=== PATIENT | male | born 1960 | race African-American/Black ===

== ENCOUNTER 2016-05-19 05:34 | Emergency (ER) | payer OTHER ==
[2016-05-19] MEDS ORDERED: NS 0.9% 1000 ML* 1,000 ML IV ONE (07:01)
[2016-05-19] MEDS ORDERED: Ondansetron ODT TAB* 4 MG PO ONE (07:01)
[2016-05-19] MEDS ORDERED: Ketorolac INJ* 30 MG/ML 1 ML VIAL IV ONE (07:01)
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
[2016-05-19 07:31] LABS: Hematocrit 41 % (42-52); Hemoglobin 13.4 g/dl (14.0-18.0); Mean Corpuscular HGB Conc 33 g/dl (31-36); Mean Corpuscular Hemoglobin 27 pg (27-31); Mean Corpuscular Volume 81 fL (80-94); Mean Platelet Volume 10 um3 (7.4-10.4); Red Blood Count 5.03 10^6/ul (4.0-5.4); Red Cell Distribution Width 13 % (10.5-15); White Blood Count 9.3 10^3/ul (3.5-10.8)
[2016-05-19 07:42] LABS: Albumin 3.8 g/dL (3.2-5.2); BUN/Creatinine Ratio 20.8 (8-20); C Reactive Protein 1.48 mg/L (< 5.00); Calcium 9.2 mg/dL (8.6-10.3); EGFR African American 134.4 (>60); EGFR Non-African American 104.5 (>60); Globulin 2.7 g/dL (2-4); Total Bilirubin 0.3 mg/dL (0.2-1.0); Total Protein 6.5 g/dL (6.4-8.9)
[2016-05-19 07:59] LABS: Urine Bilirubin Negative (Negative); Urine Glucose 1+(50 mg/dL) (Negative); Urine Nitrite Negative (Negative)
[2016-05-19 09:11] VITALS: BP 154/97
== END 2016-05-19 09:10 | disposition home or self-care (01) ==
LOC: ED 05:34
DX: M54.9 Dorsalgia, unspecified (principal); E11.9 Type 2 diabetes mellitus without complications; E78.00 Pure hypercholesterolemia, unspecified; I10 Essential (primary) hypertension; J44.9 Chronic obstructive pulmonary disease, unspecified; J45.909 Unspecified asthma, uncomplicated; Z87.891 Personal history of nicotine dependence
CPT/HCPCS: 36415; 80053; 81003; 85025; 86140; A9270-GY; J1885

== ENCOUNTER 2016-05-24 13:02 | Emergency (ER) | payer SELFPAY ==
[2016-05-24 13:21] VITALS: BP 122/82
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
== END 2016-05-24 14:38 | disposition home or self-care (01) ==
LOC: ED 13:02
DX: T65.811A Toxic effect of latex, accidental (unintentional), initial encounter (principal); R42 Dizziness and giddiness; Z91.040 Latex allergy status; Z91.09 Other allergy status, other than to drugs and biological substances; Z87.891 Personal history of nicotine dependence; M54.9 Dorsalgia, unspecified; Y92.9 Unspecified place or not applicable; G89.29 Other chronic pain
CPT/HCPCS: 99281

== ENCOUNTER 2016-06-08 15:33 | Emergency (ER) | payer SELFPAY ==
[2016-06-08 15:55] VITALS: BP 143/95
== END 2016-06-08 16:52 | disposition left against medical advice (07) ==
LOC: ED 15:33
DX: M54.9 Dorsalgia, unspecified (principal); Z53.21 Procedure and treatment not carried out due to patient leaving prior to being seen by health care provider

== ENCOUNTER → 2016-11-18 14:38 | Emergency (ER) | payer MEDICARE, OTHER ==
[~2016-11-18 14:38] MED LIST: Famotidine TAB* 20 MG PO ONE
[2016-11-18 14:44] VITALS: BP 152/121
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
== END | disposition home or self-care (01) ==
LOC: ED 14:38
DX: T78.40XA Allergy, unspecified, initial encounter (principal); T63.441A Toxic effect of venom of bees, accidental (unintentional), initial encounter; W57.XXXA Bitten or stung by nonvenomous insect and other nonvenomous arthropods, initial encounter; Y92.89 Other specified places as the place of occurrence of the external cause; R60.9 Edema, unspecified
CPT/HCPCS: 99282; A9270-GY

== ENCOUNTER 2017-01-30 09:04 | Emergency (ER) | payer MEDICARE ==
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
[2017-01-30] MEDS ORDERED: predniSONE TAB* 20 MG PO ONE (10:18)
[2017-01-30 10:33] VITALS: BP 116/82
== END 2017-01-30 10:32 | disposition home or self-care (01) ==
LOC: ED 09:04
DX: S62.001A Unspecified fracture of navicular [scaphoid] bone of right wrist, initial encounter for closed fracture (principal); S52.121A Displaced fracture of head of right radius, initial encounter for closed fracture; W19.XXXA Unspecified fall, initial encounter; Y93.51 Activity, roller skating (inline) and skateboarding; Y92.9 Unspecified place or not applicable
CPT/HCPCS: 99282; J7512

== ENCOUNTER 2017-03-31 16:00 | Emergency (ER) | payer MEDICARE ==
[2017-03-31 16:11] VITALS: BP 132/87
[2017-03-31] MEDS ORDERED: Tetracaine 0.5% OPTH.SOL 4 ML* 1 DROP BTL RIGHT EYE ONE (18:04)
[2017-03-31] MEDS ORDERED: Fluorescein Sodium TOPICAL* 1 MG TEST OPHTHALMIC ONE (18:04)
[2017-03-31] MEDS ORDERED: Polymyx/Trimethoprim OPTH* 10 ML BTL RIGHT EYE ONE (18:28)
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
== END 2017-03-31 18:45 | disposition home or self-care (01) ==
LOC: ED 16:00
DX: T15.01XA Foreign body in cornea, right eye, initial encounter (principal); Z87.891 Personal history of nicotine dependence; X58.XXXA Exposure to other specified factors, initial encounter; Y92.9 Unspecified place or not applicable
CPT/HCPCS: 99282; A9270-GY

== ENCOUNTER 2017-07-03 13:33 | Emergency (ER) | payer MEDICARE, MEDICAID ==
[2017-07-03 14:16] VITALS: BP 110/70
[2017-07-03] MEDS ORDERED: Fluorescein Sodium TOPICAL* 1 MG TEST OPHTHALMIC ONE (15:34)
[2017-07-03] MEDS ORDERED: Tetracaine 0.5% OPTH.SOL 4 ML* 1 DROP BTL LEFT EYE ONE (15:35)
--- NOTE | 2017-07-03 15:41 | UC ---
Eye Complaint HPI - HPI Summary HPI Summary: 57 year old male with cc of left eye pain. 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 He reports continuous FB sensation with no change in vision. No other complaints. Of note, last tetanus was one year ago. - History of Current Complaint Chief Complaint: UCEye Stated Complaint: FB IN EYE Time Seen by Provider: 07/03/17 15:20 Onset/Duration: Sudden Onset Timing: Constant Severity Initially: Mild Pain Intensity: 4 Location of Injury: Globe Character: Sharp Aggravating Factor(s): Blinking Alleviating Factor(s): Nothing - Risk Factors Penetrating Injury Risk Factor: Negative Globe Rupture Risk Factors: Negative Acute Glaucoma Risk Factors: Negative - Allergies/Home Medications Allergies/Adverse Reactions: Allergies Allergy/AdvReac Type Severity Reaction Status Date / Time Adhesive Tape Allergy Mild Rash Verified 03/31/17 16:08 latex Allergy Rash Verified 07/03/17 14:09 Home Medications: Home Medications Albuterol/Ipratropium NEB.HOMERO* [Duoneb (Albuterol 2.5 MG/Ipratropium 0.5 MG)] 1 vial INH QID PRN 07/03/17 [History Confirmed 07/03/17] Amoxicillin/Clavulanate TAB* [Augmentin TAB 875*] 875 mg PO BID 07/03/17 [ History Confirmed 07/03/17] Fluticasone NASAL SPRAY 50MCG* [Flonase NASAL SPRAY 50MCG*] 1 spray NASAL BID [History Confirmed 07/03/17] Valsartan TAB* [Diovan TAB*] 160 mg PO DAILY 07/03/17 [History Confirmed ] guaiFENesin/CODIEN 100MG-10MG* [Robitussin AC 100Mg-10Mg*] 10 ml PO Q4HR PRN [History Confirmed 07/03/17] metFORMIN* [Glucophage 1000 MG TAB *] 1,000 mg PO BID 07/03/17 [History Confirmed 07/03/17] PMH/Surg Hx/FS Hx/Imm Hx Endocrine History: Diabetes, Dyslipidemia Cardiovascular History: Hypertension Other History Of: Negative For: Anticoagulant Therapy - Surgical History Surgical History: Yes Surgery Procedure, Year, and Place: C/3-C/4 FUSION 04/16/12, ANKLE TENDON, CATARACTS - Family History Known Family History: Positive: Cardiac Disease, Hypertension Family History: no fhx of malignant hyperthermia or anesthesia reaction - Social History Alcohol Use: None Alcohol Amount: 2-3 DRINKS/MONTH +ETOH tonight Substance Use Type: None Substance Use Comment - Amount & Last Used: pt has been going AA meeting,not using presently Smoking Status (MU): Former Smoker Amount Used/How Often: 1/2PPD STARTED AGE 19, KEPT QUITTING Have You Smoked in the Last Year: No When Did the Patient Quit Smoking/Using Tobacco: stopped 10 or more years ago Review of Systems Constitutional: Negative Skin: Negative Eyes: Other - FB sensation ENT: Negative Respiratory: Negative Cardiovascular: Negative Gastrointestinal: Negative Genitourinary: Negative Motor: Negative Neurovascular: Negative Musculoskeletal: Negative Neurological: Negative Psychological: Negative All Other Systems Reviewed And Are Negative: Yes Physical Exam Triage Information Reviewed: Yes Appearance: Well-Appearing, No Pain Distress Vital Signs: Initial Vital Signs Temp 36.9 C 07/03/17 14:10 Pulse 84 07/03/17 14:10 Resp 16 07/03/17 14:10 BP 110/70 07/03/17 14:10 Pulse Ox 100 07/03/17 14:10 Eyes: Positive: Conjunctiva Clear, Other: - Everted eye exam No FB surgical left eye EOMI, ROMAN ENT: Positive: Normal ENT inspection Neck exam: Normal Respiratory Exam: Normal Cardiovascular Exam: Normal Neurological Exam: Normal Psychological Exam: Normal Skin Exam: Normal Procedures - Eye Procedure Eye Irrigated w/ Saline (ccs): 1 Re-Evaluation - Re-Evaluation First Eval Change: Improved Comment: After irrigation, patient felt better and he stated that the FB sensation is gone. Dawson lamp exam with fluorescein shows no corneal abrasion. Reassures patient Eye Complaint Course/Dx - Differential Dx/Diagnosis Differential Diagnosis/HQI/PQRI: Conjunctivitis, Foreign Body, Keratitis Provider Diagnoses: FB in left eye Discharge - Discharge Plan Condition: Good Disposition: HOME Patient Education Materials: Eye Foreign Body (ED) Forms: *Work Release Referrals: Brandi Rosenthal MD [Primary Care Provider] -
[2017-07-03] MEDS ORDERED: Fluorescein Sod TOPICAL 0.6* 0.6 MG TEST OPHTHALMIC ONE (15:48)
== END 2017-07-03 16:30 | disposition home or self-care (01) ==
LOC: UCEAST 13:33
DX: T15.92XA Foreign body on external eye, part unspecified, left eye, initial encounter (principal); Z91.040 Latex allergy status; Z91.048 Other nonmedicinal substance allergy status; E11.9 Type 2 diabetes mellitus without complications; Z79.84 Long term (current) use of oral hypoglycemic drugs; I10 Essential (primary) hypertension; Z87.891 Personal history of nicotine dependence
CPT/HCPCS: 99212; A9270-GY; G0463

== ENCOUNTER 2017-10-10 13:07 | Emergency (ER) | payer MEDICAID, MEDICARE ==
[2017-10-10] MEDS ORDERED: Albuterol/Ipratropium NEB.SOL* Albuterol 2.5 MG/Ipratropium 0.5 MG 3 ML INH ONE (14:09)
--- NOTE | 2017-10-10 14:21 | UC ---
Shortness of Breath HPI - HPI Summary HPI Summary: three days ago patient hit a patch of dirt while mowing and he inhaled the dust- --resulting in cough wheeze and SOB - History of Current Complaint Hx Obtained From: Patient Onset/Duration: Sudden Onset, Lasting Days - 3, Still Present Timing: Constant Dyspnea At: Exertion Associated Signs & Symptoms: Positive: Wheezing, Chest Pain w/Cough <Anjali Cordon - Last Filed: 10/10/17 15:28> <Isabella Navarro - Last Filed: 10/11/17 08:19> - History of Current Complaint Chief Complaint: UCRespiratory Stated Complaint: COUGH SINUS ISSUE Time Seen by Provider: 10/10/17 13:58 - Allergy/Home Medications Allergies/Adverse Reactions: Allergies Allergy/AdvReac Type Severity Reaction Status Date / Time Adhesive Tape Allergy Mild Rash Verified 10/10/17 13:30 latex Allergy Rash Verified 10/10/17 13:30 PMH/Surg Hx/FS Hx/Imm Hx Previously Healthy: No Endocrine History: Diabetes, Dyslipidemia Cardiovascular History: Hypertension Respiratory History: Asthma Psychological History: Other Other Psychological History: insomnia Other History Of: Negative For: Anticoagulant Therapy - Surgical History Surgical History: Yes Surgery Procedure, Year, and Place: C/3-C/4 FUSION 04/16/12, ANKLE TENDON, CATARACTS - Family History Known Family History: Positive: Cardiac Disease, Hypertension Family History: no fhx of malignant hyperthermia or anesthesia reaction - Social History Occupation: Disabled Lives: With Family Alcohol Use: None Alcohol Amount: 2-3 drinks per night Substance Use Type: None Substance Use Comment - Amount & Last Used: pt has been going AA meeting,not using presently Smoking Status (MU): Former Smoker Amount Used/How Often: 1/2PPD STARTED AGE 19, KEPT QUITTING Have You Smoked in the Last Year: No When Did the Patient Quit Smoking/Using Tobacco: stopped 10 or more years ago <Anjali Cordon - Last Filed: 10/10/17 15:28> Review of Systems Constitutional: Negative Skin: Negative Eyes: Negative ENT: Sinus Congestion, Sinus Pain/Tenderness Respiratory: Shortness Of Breath, Cough Cardiovascular: Negative Gastrointestinal: Negative Genitourinary: Negative Motor: Negative Neurovascular: Negative Musculoskeletal: Negative Neurological: Negative Psychological: Negative Is Patient Immunocompromised?: No All Other Systems Reviewed And Are Negative: Yes <Anjali Cordon - Last Filed: 10/10/17 15:28> Physical Exam Triage Information Reviewed: Yes Appearance: Well-Appearing, No Pain Distress, Well-Nourished Vital Signs: Initial Vital Signs Temp 98.7 F 10/10/17 13:10 Pulse 97 10/10/17 13:10 Resp 16 10/10/17 13:10 BP 142/88 10/10/17 13:10 Pulse Ox 100 10/10/17 13:10 Vital Signs Reviewed: Yes Eye Exam: Normal Eyes: Positive: Conjunctiva Clear ENT Exam: Normal ENT: Positive: Normal ENT inspection, Hearing grossly normal, Pharynx normal, TMs normal, Sinus tenderness, Uvula midline. Negative: Nasal congestion, Trismus, Muffled voice, Hoarse voice, Dental tenderness Dental Exam: Normal Neck exam: Normal Neck: Positive: Supple, Nontender Respiratory Exam: Normal Respiratory: Positive: Chest non-tender, No respiratory distress, No accessory muscle use, Wheezing Cardiovascular Exam: Normal Cardiovascular: Positive: RRR, No Murmur, Pulses Normal, Brisk Capillary Refill Musculoskeletal Exam: Normal Musculoskeletal: Positive: Strength Intact, ROM Intact, No Edema Neurological Exam: Normal Neurological: Positive: Alert, Muscle Tone Normal Psychological Exam: Normal Skin Exam: Normal <Anjali Cordon - Last Filed: 10/10/17 15:28> Vital Signs: Initial Vital Signs Temp 98.7 F 10/10/17 13:10 Pulse 97 10/10/17 13:10 Resp 16 10/10/17 13:10 BP 142/88 10/10/17 13:10 Pulse Ox 100 10/10/17 13:10 <Isabella Navarro - Last Filed: 10/11/17 08:19> Re-Evaluation - Re-Evaluation First Eval Change: Improved - increased air movement-feeling better <Anjali Cordon - Last Filed: 10/10/17 15:28> Shortness of Breath Dx - Course Course Of Treatment: Continue albuterol and duonebs, short course of Prednisone (check blood sugars 4 times a day and follow with pcp), flonase augmentin, follow BP with pcp - Differential Dx/Diagnosis Provider Diagnoses: Acute exacebation of bronchospams, sinusitis, hypertension in poor control <Anjali Cordon - Last Filed: 10/10/17 15:28> Discharge - Sign-Out/Discharge Documenting (check all that apply): Discharge/Admit/Transfer - Billing Disposition and Condition Condition: STABLE Disposition: Home <Anjali Cordon - Last Filed: 10/10/17 15:28> - Billing Disposition and Condition Condition: STABLE Disposition: Home <Isabella Navarro - Last Filed: 10/11/17 08:19> - Discharge Plan Condition: Stable Disposition: HOME Prescriptions: Amoxicillin/Clavulanate TAB* [Augmentin TAB 875*] 875 mg PO BID #20 tab Fluticasone NASAL SPRAY 50MCG* [Flonase NASAL SPRAY 50MCG*] 2 spray BOTH NARES DAILY #1 btl predniSONE [Prednisone 20 MG TAB] 20 mg PO DAILY 6 Days #9 tablet Patient Education Materials: Fluticasone (Into the nose), Hypertension (ED), Bronchospasm (ED) Referrals: Brandi Rosenthal MD [Primary Care Provider] - 2 Days Additional Instructions: Check your blood sugar before meals and at bed---notify your primary care doctor if they elevate!!! Attestation Statement User Type: Provider - I was available for consult. This patient was seen by the [facility]. The patient was not presented to, seen by, or examined by me. -Addi <Isabella Navarro - Last Filed: 10/11/17 08:19>
[2017-10-10 15:24] VITALS: BP 141/95
== END 2017-10-10 15:25 | disposition home or self-care (01) ==
LOC: UCEAST 13:07
DX: J98.01 Acute bronchospasm (principal); J32.9 Chronic sinusitis, unspecified; E11.9 Type 2 diabetes mellitus without complications; I10 Essential (primary) hypertension; Z91.040 Latex allergy status; Z91.09 Other allergy status, other than to drugs and biological substances; Z87.891 Personal history of nicotine dependence
CPT/HCPCS: 99212; A9270-GY; G0463

== ENCOUNTER 2018-01-26 18:49 | Emergency (ER) | payer MEDICARE ==
[2018-01-26] MEDS ORDERED: Ketorolac INJ* 30 MG/ML 1 ML VIAL IM ONE (20:53)
[2018-01-26] MEDS ORDERED: oxyCODONE/Acetamin 5/325 MG* TAB PO ONE (20:54)
[2018-01-26] MEDS ORDERED: Lidocaine PATCH 5%* 1 PATCH TRANSDERM ONE (20:54)
--- NOTE | 2018-01-26 21:29 | RAD ---
EXAM: CT Cervical Spine Without Intravenous Contrast CLINICAL HISTORY: 57 years old, male; Pain; Neck pain; Prior surgery; Surgery date: 6+ months; Surgery type: Plates/screws multiple levels cervical spine; Additional info: Left side neck pain TECHNIQUE: Axial computed tomography images of the cervical spine without intravenous contrast. All CT scans at this facility use at least one of these dose optimization techniques: automated exposure control; mA and/or kV adjustment per patient size (includes targeted exams where dose is matched to clinical indication); or iterative reconstruction. Coronal and sagittal reformatted images were created and reviewed. COMPARISON: [facility] SPINE CERVICAL W/O 02/25/2016 2:24 PM FINDINGS: Vertebrae: Straightened cervical lordosis without spondylolisthesis. Patient post anterior fusion and discectomy is C3-C4 and C6-C7 with findings from prior anterior fusion of C4-C5. The craniocervical junction and atlantoaxial articulation are symmetric and normal. No fractures. Vertebral body heights are maintained. Discs/spinal canal/neural foramina: C2-C3:There is no disc space narrowing. No canal stenosis or foraminal narrowing. Mild right facet hypertrophy. C3-C4: Fusion of the disc space. The facet joints are normal. No neural foraminal narrowing. C4-C5:There is no disc space narrowing. No canal stenosis or foraminal narrowing. The facet joints are normal. C5-C6: Disc height loss with osteophyte disc bulge complex causing mild to moderate canal stenosis unchanged from prior. Uncovertebral and facet hypertrophy causing no neuroforaminal narrowing. C6-C7: Fusion of the disc space. No canal stenosis.The facet joints are normal. No neural foraminal narrowing. C7-T1:There is no disc space narrowing. No canal stenosis or foraminal narrowing. The facet joints are normal. Soft tissues: Normal. Lung apices: Normal as visualized. IMPRESSION: Mild multilevel cervical spondylopathy post C3-C4 and C6-C7 anterior fusion and discectomies causing mild/moderate C5-C6 canal stenosis unchanged from prior.
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
[2018-01-26 22:16] VITALS: BP 122/78
== END 2018-01-26 22:15 | disposition home or self-care (01) ==
LOC: ED 18:49
DX: M54.2 Cervicalgia (principal); E11.9 Type 2 diabetes mellitus without complications; I25.119 Atherosclerotic heart disease of native coronary artery with unspecified angina pectoris; Z95.5 Presence of coronary angioplasty implant and graft; I10 Essential (primary) hypertension; E78.00 Pure hypercholesterolemia, unspecified; J44.9 Chronic obstructive pulmonary disease, unspecified; Z87.891 Personal history of nicotine dependence
CPT/HCPCS: 72125; 96372; 99282; A9270-GY; J1885

== ENCOUNTER 2018-02-02 16:19 | Emergency (ER) | payer MEDICARE ==
[2018-02-02 16:33] VITALS: BP 131/91
[2018-02-02] MEDS ORDERED: HYDROcodone/ACETAMIN 5-325 MG* 1 TAB PO ONE ×2 (16:52→17:57)
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
== END 2018-02-02 18:24 | disposition home or self-care (01) ==
LOC: UCEAST 16:19
DX: M54.2 Cervicalgia (principal); Z98.1 Arthrodesis status; Z91.040 Latex allergy status; Z91.048 Other nonmedicinal substance allergy status; Z87.891 Personal history of nicotine dependence
CPT/HCPCS: 99213; G0463

== ENCOUNTER 2018-02-16 08:55 | Emergency (ER) | payer MEDICARE ==
[2018-02-16 09:01] VITALS: BP 119/79
[2018-02-16] MEDS ORDERED: Amoxicillin PO (*) 875 MG TAB PO ONE (09:10)
[2018-02-16] MEDS ORDERED: Ketorolac INJ* 60 MG/2 ML VIAL IM ONE (09:11)
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
[2018-02-16] MEDS ORDERED: Amoxicillin PO (*) 500 MG CAP PO ONE (10:00)
== END 2018-02-16 09:57 | disposition home or self-care (01) ==
LOC: ED 08:55
DX: K08.89 Other specified disorders of teeth and supporting structures (principal); I25.119 Atherosclerotic heart disease of native coronary artery with unspecified angina pectoris; I10 Essential (primary) hypertension; Z95.5 Presence of coronary angioplasty implant and graft; J44.9 Chronic obstructive pulmonary disease, unspecified; Z91.040 Latex allergy status; Z91.048 Other nonmedicinal substance allergy status; Z87.891 Personal history of nicotine dependence
CPT/HCPCS: 96372; 99282; J1885

== ENCOUNTER 2018-04-24 18:14 | Emergency (ER) | payer MEDICARE, OTHER ==
[2018-04-24] MEDS ORDERED: Diazepam TAB(*) 5 MG PO ONE (19:28)
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
[2018-04-24] MEDS ORDERED: Cyclobenzaprine TAB* 10 MG PO ONE (21:01)
[2018-04-24 21:15] VITALS: BP 126/84
== END 2018-04-24 21:08 | disposition home or self-care (01) ==
LOC: ED 18:14
DX: M62.838 Other muscle spasm (principal); V43.52XA Car driver injured in collision with other type car in traffic accident, initial encounter; Y92.410 Unspecified street and highway as the place of occurrence of the external cause; Z87.891 Personal history of nicotine dependence; E11.9 Type 2 diabetes mellitus without complications; I25.10 Atherosclerotic heart disease of native coronary artery without angina pectoris; E78.00 Pure hypercholesterolemia, unspecified
CPT/HCPCS: 72125; 99282; A9270-GY

== ENCOUNTER 2018-05-19 10:04 | Emergency (ER) | payer MEDICARE, MEDICAID ==
--- NOTE | 2018-05-19 10:25 | ED ---
Throat Pain/Nasal Congestion - HPI Summary HPI Summary: A 57 y/o male presents to the ED c/o right sided facial pain near nose and right upper dental pain. Currently, the patient is experiencing tooth/facial pain reaching 9/10 in severity. The pain he experiences today "is nothing like last night". As per triage, "pt states swelling to face up to side of nose upper right dental issues. pain as well. states swelling happened over night however history of poor dental hygeine for a long time, per pt. last sode ibuprofen last night". According to the patient, he stated that last night the pain was on the right side of his facial (noticed some swelling), near his nose , however, today the pain feels like tooth pain that radiate to his upper right teeth. He noted that he has been looking for a dentist, but could not find one that takes his insurance. He stated that he feels congested as he couldn't blow his nose last night due to the pain. - History of Current Complaint Chief Complaint: EDDentalPain Time Seen by Provider: 05/19/18 10:18 Hx Obtained From: Patient Onset/Duration: Sudden Onset, Lasting Days, Still Present Severity: Severe - 9/10 Associated Signs And Symptoms: Positive: Negative Cough: None - Allergies/Home Medications Allergies/Adverse Reactions: Allergies Allergy/AdvReac Type Severity Reaction Status Date / Time Adhesive Tape Allergy Mild Rash Verified 05/19/18 10:17 latex Allergy Rash Verified 05/19/18 10:17 PMH/Surg Hx/FS Hx/Imm Hx Endocrine/Hematology History: Reports: Hx Diabetes Denies: Hx Anticoagulant Therapy Cardiovascular History: Reports: Hx Angina, Hx Coronary Artery Disease - stent, Hx Hypercholesterolemia, Hx Hypertension, Other Cardiovascular Problems/ Disorders - IDDM Denies: Hx Myocardial Infarction, Hx Pacemaker/ICD, Hx Valvular Heart Disease Respiratory History: Reports: Hx Asthma, Hx Chronic Obstructive Pulmonary Disease (COPD) - uses inhaler when needed, Other Respiratory Problems/Disorders - BURN TO RIGHT UPPER CHEST WHEN 4 Y/O History: Denies: Hx Dialysis, Hx Renal Disease Musculoskeletal History: Reports: Hx Arthritis - SPINE, KNEES, Hx Back Problems , Other Musculoskeletal History - recent c3-4 fusion surgery Sensory History: Reports: Hx Cataracts - BILATERAL, Hx Contacts or Glasses Denies: Hx Hearing Aid Opthamlomology History: Reports: Hx Cataracts - BILATERAL, Hx Contacts or Glasses Neurological History: Reports: Hx Headaches - USES OTC MED FOR RELIEF Psychiatric History: Denies: Hx Panic Disorder - Surgical History Surgery Procedure, Year, and Place: C/3-C/4 FUSION 04/16/12, ANKLE TENDON, CATARACTS Hx Anesthesia Reactions: No - Immunization History Date of Tetanus Vaccine: Unknown Date of Influenza Vaccine: unknown Infectious Disease History: No Infectious Disease History: Denies: Traveled Outside the [place] in Last 30 Days - Family History Known Family History: Positive: Cardiac Disease, Hypertension Family History: no fhx of malignant hyperthermia or anesthesia reaction - Social History Alcohol Use: None Alcohol Amount: 2-3 drinks per night Substance Use Type: Reports: Marijuana Substance Use Comment - Amount & Last Used: pt has been going AA meeting,not using presently Hx Tobacco Use: Yes Smoking Status (MU): Former Smoker Amount Used/How Often: 1/2PPD STARTED AGE 19, KEPT QUITTING Have You Smoked in the Last Year: No Review of Systems Negative: Fever Positive: Dental Pain - RIGHT UPPER TEETH Positive: Other - PATIENT FEELS CONGESTED. All Other Systems Reviewed And Are Negative: Yes Physical Exam - Summary Physical Exam Summary: Appearance: The patient is well-nourished in no acute distress and in no acute pain. Skin: The skin is warm and dry and skin color reflects adequate perfusion. HEENT: The head is normocephalic and atraumatic. The pupils are equal and reactive. The conjunctivae are clear and without drainage. Nares are patent and without drainage. Mouth reveals moist mucous membranes and the throat is without erythema and exudate. The external ears are intact. The ear canals are patent and without drainage. The tympanic membranes are intact. Facial tenderness with no obvious abscess or cellulitis. Patient is missing his mandibular canine on the right. Neck: The neck is supple with full range of motion and non-tender. There are no carotid bruits. There is no neck vein distension. Respiratory: Chest is non-tender. Lungs are clear to auscultation and breath sounds are symmetrical and equal. Cardiovascular: Heart is regular rate and rhythm. There is no murmur or rub auscultated. There is no peripheral edema and pulses are symmetrical and equal. Abdomen: The abdomen is soft and non-tender. There are normal bowel sounds heard in all four quadrants and there is no organomegaly palpated. Musculoskeletal: There is no back tenderness noted. Extremities are non-tender with full range of motion. There is good capillary refill. There is no peripheral edema or calf tenderness elicited. Neurological: Patient is alert and oriented to person, place and time. The patient has symmetrical motor strength in all four extremities. Cranial nerves are grossly intact. Deep tendon reflexes are symmetrical and equal in all four extremities. Psychiatric: The patient has an appropriate affect and does not exhibit any anxiety or depression. Triage Information Reviewed: Yes Vital Signs On Initial Exam: Initial Vitals Temp Pulse Resp BP Pulse Ox 96.2 F 92 16 135/89 98 05/19/18 10:13 05/19/18 10:13 05/19/18 10:13 05/19/18 10:13 05/19/18 10:13 Vital Signs Reviewed: Yes Diagnostics - Vital Signs Vital Signs Temp Pulse Resp BP Pulse Ox 05/19/18 10:13 96.2 F 92 16 135/89 98 - Laboratory Lab Statement: Any lab studies that have been ordered have been reviewed, and results considered in the medical decision making process. EENT Course/Dx - Course Course Of Treatment: Mr. Madrigal started with pain in his right infraorbital area last night and today it feels more like a toothache. He was nontoxic in appearance and his vital signs were stable. His sinuses transilluminate and he has significantly poor dentition. There is no obvious cellulitis or abscess but I have to assume the pain is from his tooth and will treat accordingly. - Diagnoses Provider Diagnoses: Tooth ache Discharge - Sign-Out/Discharge Documenting (check all that apply): Patient Departure - DISCHARGE - Discharge Plan Condition: Stable Disposition: HOME Prescriptions: HYDROcodone/ACETAMIN 5-325 MG* [[place] 5-325 TAB*] 1 tab PO Q6H PRN #20 tab MDD 4 PRN Reason: Pain Penicillin VK TAB* [Penicillin VK 250 mg Tab*] 500 mg PO QID #40 tab Patient Education Materials: Toothache (ED) Referrals: Brandi Rosenthal MD [Primary Care Provider] - Additional Instructions: FOLLOW UP WITH DENTIST. TAKE NORCO AND PENICILLIN PRESCRIBED. RETURN TO THE ED FOR ANY NEW OR WORSENING SYMPTOMS. - Billing Disposition and Condition Condition: STABLE Disposition: Home - Attestation Statements Document Initiated by Scribe: Yes Documenting Scribe: Derik Hdz Provider For Whom Scribe is Documenting (Include Credential): Abdoulaye Krishnamurthy MD Scribe Attestation: I, Derik Hdz, scribed for Abdoulaye Krishnamurthy MD on 05/19/18 at 1121. Scribe Documentation Reviewed: Yes Provider Attestation: The documentation as recorded by the tuibeDerik accurately reflects the service I personally performed and the decisions made by me, Abdoulaye Krishnamurthy MD Status of Scribe Document: Viewed
[2018-05-19 10:47] VITALS: BP 0/0
== END 2018-05-19 10:46 | disposition home or self-care (01) ==
LOC: ED 10:04
DX: K08.89 Other specified disorders of teeth and supporting structures (principal); R51 Headache; Z87.891 Personal history of nicotine dependence
CPT/HCPCS: 99282

== ENCOUNTER 2018-07-19 11:38 | Emergency (ER) | payer MEDICARE ==
--- OUTSIDE RECORDS SUMMARY | 2018-07-19 12:04 | XMS REPORT ---
:1960 Author Organization Jarett Ceron [facility] Dental Care Team Providers Name Role Phone Dianne Sales Unavailable Unavailable PROBLEMS Unknown Problems ALLERGIES No Information ENCOUNTERS Encounter Location Date Diagnosis [address] [address] Aug, [address] [address] Jul, [address] [address] Jun, [address] [address] Jun, [address] [address] Jun, IMMUNIZATIONS No Known Immunizations SOCIAL HISTORY Never Assessed REASON FOR REFERRAL FUNCTIONAL STATUS PLAN OF CARE VITAL SIGNS MEDICATIONS Unknown Medications PROCEDURES Procedure Date Ordered Result Body Site No Billable Treatment Provided Jul 02, 2018 RESULTS No Results REASON FOR VISIT Insurance Providers [facility] Member Patient Patient Patient Patient Patient Subscriber Subscriber Subscriber Group Insurance Plan Plan Plan Plan ID Relationship Address Phone Name Date of ID Name Date of No Type Insurance Insurance Insurance Coverage to Subscriber Address Phone Name Dates Aetna [phone] Aetna self [place] [id number] Medicare [id number] Medicare [place] [phone] Medicaid [address] [phone] Medicaid self [place] [id number] [facility] [address] [place] [id number] Medicare National [phone] Medicare self [place] [id number] PPS Government 41 PPS [place] [employer] [address] [facility] [id number]
--- OUTSIDE RECORDS SUMMARY | 2018-07-19 12:04 | XMS REPORT ---
:1960 Author Organization [facility] Care Team Providers Name Role Phone Lorenzo Doty Unavailable Unavailable PROBLEMS Unknown Problems ALLERGIES No Information ENCOUNTERS Encounter Location Date Diagnosis [address] [address] Aug, [address] [address] Jul, [address] [address] Jun, [address] [address] Jun, [address] [address] Jun, IMMUNIZATIONS No Known Immunizations SOCIAL HISTORY Never Assessed REASON FOR REFERRAL FUNCTIONAL STATUS PLAN OF CARE VITAL SIGNS MEDICATIONS Unknown Medications PROCEDURES No Known procedures RESULTS No Results REASON FOR VISIT Information Request Insurance Providers [facility] Health Member Patient Patient Patient Patient Patient Subscriber Subscriber Subscriber Group Insurance Plan Plan Plan Plan ID Relationship Address Phone Name Date of ID Name Date of No Type Insurance Insurance Insurance Coverage to Subscriber Address Phone Name Dates Medicare National [phone] Medicare self [place] [id number] PPS Government 41 PPS [place] [employer] [address] [facility] [id number] Medicaid [address] [phone] Medicaid self [place] [id number] [facility] [address] [address] Aetna [phone] Aetna self [place] [id number] Medicare [id number] Medicare [place] [phone]
--- OUTSIDE RECORDS SUMMARY | 2018-07-19 12:05 | XMS REPORT ---
:1960 Author Organization [facility] Care Team Providers Name Role Phone Lorenzo Doty Unavailable Unavailable PROBLEMS Unknown Problems ALLERGIES No Information ENCOUNTERS Encounter Location Date Diagnosis [facility] [address] [place] [phone] Aug, [address] [address] Jul, [address] [address] Jun, [facility] [address] [place] [phone] Jun, [facility] [address] [place] [phone] Jun, IMMUNIZATIONS No Known Immunizations SOCIAL HISTORY Never Assessed REASON FOR REFERRAL FUNCTIONAL STATUS PLAN OF CARE VITAL SIGNS MEDICATIONS Unknown Medications PROCEDURES Procedure Date Ordered Result Body Site PANORAMIC FILM SEE ALSO CODE [id number] Jul 02, 2018 LTD ORAL EVALUATION-PROBLEM FOCUS Jul 02, 2018 RESULTS No Results REASON FOR VISIT Insurance Providers [facility] Health Member Patient Patient Patient Patient Patient Subscriber Subscriber Subscriber Group Insurance Plan Plan Plan Plan ID Relationship Address Phone Name Date of ID Name Date of No Type Insurance Insurance Insurance Coverage to Subscriber Address Phone Name Dates Aetna [phone] Aetna self [place] [id number] Medicare [id number] Medicare [place] [phone] Medicare National [phone] Medicare self [place] [id number] PPS Government 41 PPS [place] [employer] [address] [facility] [id number] Medicaid [address] [phone] Medicaid self [place] [id number] [facility] [address] [address]
[2018-07-19] MEDS ORDERED: Dexamethasone IV* 4 MG/ML 1 ML (4 MG) IM ONE (12:14)
[2018-07-19] MEDS ORDERED: Famotidine TAB* 20 MG PO ONE (12:14)
[2018-07-19] MEDS ORDERED: Albuterol HFA INHALER* 8 gm MDI INH ONE (12:15)
--- NOTE | 2018-07-19 12:20 | ED ---
Allergic Reaction/Systemic - HPI Summary HPI Summary: Patient is a 58-year-old male presenting to the ED with a possible allergic reaction. He states he was taking amoxicillin for dental infection when the next day he broke out in hives across his bilateral forearms. The following day , today he stated he had some feeling of "tightness" in his chest. He denies difficulty breathing or CP. He denies any previous allergic reactions. Denies lip swelling, dysphagia or odynophagia. He endorses his mouth felling "tight." Took a benadryl last night. Discontinued the amoxicillin following the first episode. Hx of COPD. - History of Current Complaint Chief Complaint: EDAllergicReaction Time Seen by Provider: 07/19/18 11:52 Hx Obtained From: Patient Onset/Duration: Sudden Onset Timing: Constant Severity Initially: Moderate Severity Currently: Moderate Pain Intensity: 3 Pain Scale Used: 0-10 Numeric Character: Hives Alleviating Factor(s): Antihistamines Associated Signs And Symptoms: Positive: Other: - tightness in the chest - Related Hx Possible Reaction To: Medications - Allergies/Home Medications Allergies/Adverse Reactions: Allergies Allergy/AdvReac Type Severity Reaction Status Date / Time Adhesive Tape Allergy Mild Rash Verified 05/19/18 10:17 amoxicillin Allergy Hives/Diff. Verified 07/19/18 11:49 Breathing/I tching latex Allergy Rash Verified 05/19/18 10:17 PMH/Surg Hx/FS Hx/Imm Hx Previously Healthy: Yes Endocrine/Hematology History: Reports: Hx Diabetes Denies: Hx Anticoagulant Therapy Cardiovascular History: Reports: Hx Angina, Hx Coronary Artery Disease - stent, Hx Hypercholesterolemia, Hx Hypertension, Other Cardiovascular Problems/ Disorders - IDDM Denies: Hx Myocardial Infarction, Hx Pacemaker/ICD, Hx Valvular Heart Disease Respiratory History: Reports: Hx Asthma, Hx Chronic Obstructive Pulmonary Disease (COPD) - uses inhaler when needed, Other Respiratory Problems/Disorders - BURN TO RIGHT UPPER CHEST WHEN 4 Y/O History: Denies: Hx Dialysis, Hx Renal Disease Musculoskeletal History: Reports: Hx Arthritis - SPINE, KNEES, Hx Back Problems , Other Musculoskeletal History - recent c3-4 fusion surgery Sensory History: Reports: Hx Cataracts - BILATERAL, Hx Contacts or Glasses Denies: Hx Hearing Aid Opthamlomology History: Reports: Hx Cataracts - BILATERAL, Hx Contacts or Glasses Neurological History: Reports: Hx Headaches - USES OTC MED FOR RELIEF Psychiatric History: Denies: Hx Panic Disorder - Surgical History Surgery Procedure, Year, and Place: C/3-C/ FUSION 04/16/12, ANKLE TENDON, CATARACTS Hx Anesthesia Reactions: No - Immunization History Date of Tetanus Vaccine: Unknown Date of Influenza Vaccine: unknown Hx Pertussis Vaccination: No Immunizations Up to Date: Yes Infectious Disease History: No Infectious Disease History: Denies: Traveled Outside the [place] in Last 30 Days - Family History Known Family History: Positive: Cardiac Disease, Hypertension Family History: no fhx of malignant hyperthermia or anesthesia reaction - Social History Occupation: Unemployed Lives: Alone Alcohol Use: None Alcohol Amount: 2-3 drinks per night Hx Substance Use: Yes Substance Use Type: Reports: Marijuana Substance Use Comment - Amount & Last Used: pt has been going AA meeting,not using presently Hx Tobacco Use: Yes Smoking Status (MU): Former Smoker Amount Used/How Often: 1/2PPD STARTED AGE 19, KEPT QUITTING Have You Smoked in the Last Year: No Review of Systems Constitutional: Negative Negative: Fever, Chills, Fatigue Positive: Sore Throat - mouth tightness without throat tightness. Negative: Epistaxis, Dental Pain Negative: Palpitations, Chest Pain Positive: Other - feeling of chest "tightness" without SOB Negative: Abdominal Pain, Vomiting Musculoskeletal: Negative Skin: Negative Neurological: Negative All Other Systems Reviewed And Are Negative: Yes Physical Exam Triage Information Reviewed: Yes Vital Signs On Initial Exam: Initial Vitals Temp Pulse Resp BP Pulse Ox 97.3 F 82 16 122/85 99 07/19/18 11:44 07/19/18 11:44 07/19/18 11:44 07/19/18 11:44 07/19/18 11:44 Vital Signs Reviewed: Yes Appearance: Positive: Well-Appearing, Well-Nourished Skin: Positive: Warm, Skin Color Reflects Adequate Perfusion Head/Face: Positive: Normal Head/Face Inspection Eyes: Positive: EOMI, ROMAN, Conjunctiva Clear Neck: Positive: Supple, No Lymphadenopathy Respiratory/Lung Sounds: Positive: Clear to Auscultation, Breath Sounds Present. Negative: Subcutaneous Emphysema, Wheezes, Unable to speak in full sentences, Fatigue Cardiovascular: Positive: RRR, Pulses are Symmetrical in both Upper and Lower Extremities Musculoskeletal: Positive: Normal, Strength/ROM Intact Neurological: Positive: Sensory/Motor Intact, Alert, Oriented to Person Place, Time Psychiatric: Positive: Normal, Affect/Mood Appropriate AVPU Assessment: Alert Diagnostics - Vital Signs Vital Signs Temp Pulse Resp BP Pulse Ox 07/19/18 11:44 97.3 F 82 16 122/85 99 - Laboratory Lab Statement: Any lab studies that have been ordered have been reviewed, and results considered in the medical decision making process. Allergic Reaction Course/Dx - Course Course Of Treatment: During the course of treatment, the patient is evaluated for tightness in his chest and tightness in his mouth 1.5 days after taking amoxicillin. He was unaware if he was allergic, however has discontinued this medication. He also endorsed bilateral forearm hives, however this resolved after taking his first dose of Benadryl. He took a second dose of Benadryl last evening and did not take any Benadryl this morning. Patient denies any odynophagia, dysphagia. He is swallowing his secretions well. Denies any shortness of breath, however endorses a "tightness". On physical examination, there is no pharyngeal erythema no evidence of throat closing or edema to the neck. Lungs are clear to auscultation bilaterally with no wheezing noted. No lip swelling is noted. No rash to the bilateral forearms. He is given famotidine by mouth, Decadron 8 mg IM and chest x-ray is obtained. He will continue to take prednisone at home 3 days, is given a new antibiotic for his dental infection and he will continue to take Benadryl once at home. I do not feel at this time he needs to stay in the ED for risk of worsening reaction. He is given strict return precautions and amoxicillin is added to allergy med list. - Diagnoses Differential Diagnosis/HQI/PQRI: Positive: Anaphylaxis Provider Diagnoses: Allergic reaction Discharge - Sign-Out/Discharge Documenting (check all that apply): Patient Departure Patient Received Moderate/Deep Sedation with Procedure: No - Discharge Plan Condition: Stable Disposition: HOME Prescriptions: Clindamycin Cap(NF) [Clindamycin Cap 300 mg Cap(NF)] 300 mg PO TID #15 cap predniSONE TAB* [Deltasone 20 MG TAB*] 40 mg PO DAILY #4 tab Patient Education Materials: Allergies (ED) Referrals: Brandi Rosenthal MD [Primary Care Provider] - Additional Instructions: Refrain from taking amoxicillin Clindamycin has been prescribed to you - 300mg three times daily x 5 days for your dental infection Prednisone once daily x 4 days - start this tomorrow - Billing Disposition and Condition Condition: STABLE Disposition: Home
[2018-07-19 13:54] VITALS: BP 135/97
== END 2018-07-19 13:53 | disposition home or self-care (01) ==
LOC: ED 11:38
DX: T78.40XA Allergy, unspecified, initial encounter (principal); J02.9 Acute pharyngitis, unspecified; Z87.891 Personal history of nicotine dependence; X58.XXXA Exposure to other specified factors, initial encounter; I25.10 Atherosclerotic heart disease of native coronary artery without angina pectoris; Z95.5 Presence of coronary angioplasty implant and graft; I10 Essential (primary) hypertension
CPT/HCPCS: 71046; 96372; 99282; A9270-GY; J1100

== ENCOUNTER 2018-07-26 10:25 | Emergency (ER) | payer MEDICARE, MEDICAID ==
--- OUTSIDE RECORDS SUMMARY | 2018-07-26 10:44 | XMS REPORT ---
:1960 Author Organization [facility] Care Team Providers Name Role Phone Lorenzo Doty Unavailable Unavailable PROBLEMS Unknown Problems ALLERGIES No Information ENCOUNTERS Encounter Location Date Diagnosis [address] [address] Aug, [address] [address] Jul, [address] [address] Jun, [address] [address] Jun, [address] [address] Jun, IMMUNIZATIONS No Known Immunizations SOCIAL HISTORY Never Assessed REASON FOR REFERRAL FUNCTIONAL STATUS PLAN OF CARE VITAL SIGNS Blood pressure systolic 122 mm Hg 2018-07-25 Blood pressure diastolic 75 mm Hg 2018-07-25 MEDICATIONS Unknown Medications PROCEDURES Procedure Date Ordered Result Body Site BLOOD PRESSURE, MEASURED July 25, 2018 EXTRAC ERUPTED TOOTH/EXPOSED ROOT July 25, 2018 RESULTS No Results REASON FOR VISIT Insurance Providers [facility] Health Member Patient Patient Patient Patient Patient Subscriber Subscriber Subscriber Group Insurance Plan Plan Plan Plan ID Relationship Address Phone Name Date of ID Name Date of No Type Insurance Insurance Insurance Coverage to Subscriber Address Phone Name Dates Aetna [phone] Aetna self [place] [id number] Medicare [id number] Medicare [place] [phone] Medicaid [address] [phone] Medicaid self [place] [id number] [facility] [address] [address] Medicare National [phone] Medicare self [place] [id number] PPS Government 41 PPS [place] [employer] [address] [facility] [id number]
[2018-07-26] MEDS ORDERED: Ketorolac INJ* 60 MG/2 ML VIAL IM ONE (11:13)
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
[2018-07-26 11:42] LABS: Influenza A Molecular NEGATIVE (Negative); Influenza B Molecular NEGATIVE (Negative)
[2018-07-26 11:51] LABS: ABS Basophils 0 10^3/ul (0-0.2); ABS Eosinophils 0.1 10^3/ul (0-0.6); ABS Lymphocytes 1.6 10^3/ul (1.0-4.8); ABS Monocytes 0.7 10^3/ul (0-0.8); ABS Neutrophils 5.6 10^3/ul (1.5-7.7); ABS Nucleated RBC 0 10^3/ul; Eosinophil % 1.7 %; Hematocrit 45 % (36-46); Hemoglobin 14.6 g/dL (14.0-18.0); Lymphocyte % 19.7 %; Mean Corpuscular HGB Conc 32 g/dL (31-36); Mean Corpuscular Hemoglobin 26 pg (27-31); Mean Corpuscular Volume 81 fL (80-94); Mean Platelet Volume 9.1 fL (7.4-10.4); Nucleated Red Blood Cells % 0.1; Platelet Count 183 10^3/uL (150-450); Red Blood Count 5.58 10^6 /uL (4.18-5.48); Red Cell Distribution Width 14 % (10.5-15); White Blood Count 8.1 10^3/uL (3.5-10.8)
[2018-07-26 11:59] LABS: Albumin 4.5 g/dL (3.2-5.2); Calcium 9.3 mg/dL (8.6-10.3); Potassium 3.8 mmol/L (3.5-5.0); Total Bilirubin 0.6 mg/dL (0.2-1.0)
[2018-07-26 12:05] LABS: Albumin/Globulin Ratio 1.7 (1-3); BUN/Creatinine Ratio 17.3 (8-20); EGFR Non-African American 106.6 (>60); Globulin 2.6 g/dL (2-4); Total Protein 7.1 g/dL (6.4-8.9)
[2018-07-26 12:20] VITALS: BP 128/83
== END 2018-07-26 12:19 | disposition home or self-care (01) ==
LOC: ED 10:25
DX: B34.9 Viral infection, unspecified (principal); K08.409 Partial loss of teeth, unspecified cause, unspecified class; E11.9 Type 2 diabetes mellitus without complications; I25.119 Atherosclerotic heart disease of native coronary artery with unspecified angina pectoris; I10 Essential (primary) hypertension; Z95.5 Presence of coronary angioplasty implant and graft; E78.00 Pure hypercholesterolemia, unspecified; J44.9 Chronic obstructive pulmonary disease, unspecified; R51 Headache; Z91.040 Latex allergy status; Z88.0 Allergy status to penicillin; Z91.048 Other nonmedicinal substance allergy status; Z82.49 Family history of ischemic heart disease and other diseases of the circulatory system; Z87.891 Personal history of nicotine dependence
CPT/HCPCS: 36415; 71046; 80053; 85025; 87040; 87651; 96372; 99282; J1885

== ENCOUNTER 2018-08-27 06:55 | Emergency (ER) | payer MEDICAID, MEDICARE, OTHER ==
[2018-08-27] MEDS ORDERED: traMADol TAB* 50 MG PO ONE (07:21)
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
--- OUTSIDE RECORDS SUMMARY | 2018-08-27 07:36 | XMS REPORT | Continuity of Care Document ---
:1960 External Reference #:[id number] Author Name Daisy Judi Care Team Providers Name Role Phone Jonny De Anda M.D. 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 Brandi Rosenthal MD Primary Care Physician Unavailable Payers Date Identification Numbers Payment Provider Subscriber Policy Number: [id number] Formerly [facility] Medicare Wesley Madrigal PayID: [id number] [address] [place] [address] Policy Number: [id number] Medicaid Wesley Madrigal Group Name: 1 1 [address] PayID: [id number] [place] [address] Expires: 2014 Policy Number: [id number] Medicaid Wesley Madrigal Group Name: 1 1 [address] PayID: [id number] [place] [address] Advance Directives Description No Information Available Problems Date Description Provider Status Onset: 05/29/2013 Essential hypertension Robbi Day M.D. Active Onset: 03/24/2013 Electrocardiogram abnormal Robbi Day M.D. Active Onset: 03/24/2013 Dyspnea Robbi Day M.D. Active Onset: 03/24/2013 Mixed hyperlipidemia Robbi Day M.D. Active Onset: 03/24/2013 Malignant essential hypertension Robbi Day M.D. Active Onset: 03/24/2013 Chest pain Robbi Day M.D. Active Family History Date Family Member(s) Observation Comments General Colon Cancer Father Coronary Artery Disease (CAD) from CAD at about age 68 Mother Coronary Artery Disease (CAD) Social History Type Date Description Comments Sex Unknown Marital Status Single Lives With Daughters grand daughter Occupation Disabled ETOH Use Denies alcohol use Tobacco Use Start: Unknown End: Patient is a former Quit 2009 Unknown smoker Recreational Drug Use Denies Drug Use Smoking Status Reviewed: 08/09/18 Patient is a former Quit 2010 smoker Exercise Type/Frequency Exercises sporadically Allergies, Adverse Reactions, Alerts Date Description Reaction Status Severity Comments 05/29/2013 Tape blisters Active 05/28/2014 Latex Active 08/09/2018 Penicillin G Difficulty breathing, Hives, Active Severe Itching, Tongue swelling 05/29/2013 NKDA Inactive Medications Medication Date Status Form Strength Qnty SIG Indications Ordering Provider Gabapentin 11/23 Active Capsules 400mg 1 cap po [place], /2017 three times 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 Ingrid key M.D. medication ) Metformin HCL 07/26 Active Tablets 1000mg 180ta 1 by mouth bs twice a day Spiriva Active Capsules 18mcg 90cap 1 Unknown Handihale s inhalation po qam ( Pt stop taking) Ventolin HFA Active Aerosol 108(90Bas 1unit 2 puffs po Unknown e) s qid prn mcg/Act Cyclobenzaprine Active Tablets 10mg 10tab bid Unknown HCL / s Aspirin Active Tablets 81mg 1 by mouth Unknown every day Tramadol HCL Active Tablets 50mg 40tab 1-2 tablets Unknown s every 6 hours as needed Trazodone HCL Active Tablets 100mg 30tab 1 by mouth s every night at bedtime Albuterol Sulfate Active Nebulizer (2.5mg/3M 100un 1 vial via Unknown /0000 L) 0.083% its nebulizer 4 times daily as needed [place] 3 Ethyl Active Capsules 1000mg 1 tab by Unknown Esters /0000 mouth every day Meloxicam 11/23 Hx Tablets 7.5mg 90tab 1 by mouth Christiano, /2016 s twice daily Ирина - as needed 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 05/27 Lisinopril Hx Tablets 20mg 90tab 1 po qd Unknown /0000 s - 01/17 Fluoxetine Hx Capsules 20mg 90cap 1 po qd Unknown /0000 s - 05/27 Chlorothiazide Hx Solution 500mg daily Unknown Sodium /0000 Rec - 05/27 Ibuprofen Hx Tablets 800mg 90tab po tid prn Unknown /0000 s - 01/17 Atenolol Hx Tablets 50mg 90tab 1 by mouth Unknown /0000 s every day - 01/17 Immunizations Description No Information Available Vital Signs Date Vital Result Comment 08/09/2018 8:36am Height 66 inches 5'6" Weight 150.25 lb Heart Rate 77 /min BP Systolic 113 mmHg BP Diastolic 73 mmHg Respiratory Rate 18 /min Body Temperature 96.4 F O2 % BldC Oximetry 100 % BMI (Body Mass Index) 24.2 kg/m2 01/18/2017 11:07am Weight 151.50 lb with shoes Heart Rate 88 /min BP Systolic Sitting 120 mmHg Lue reg cuff BP Diastolic Sitting 84 mmHg Lue reg cuff BP Systolic Standing 130 mmHg Lue reg cuff BP Diastolic Standing 88 mmHg Lue reg cuff Respiratory Rate 16 /min Ejection Fraction 55-60% date 01/04/17 ECHO 12/08/2016 3:07pm Height 66 inches 5'6" Weight 145.00 lb with boots Heart Rate 88 /min BP Systolic Sitting 122 mmHg LA reg cuff BP Diastolic Sitting 88 mmHg LA reg cuff BMI (Body Mass Index) 23.4 kg/m2 Ejection Fraction 55% - 60% echo 09/02/15 09/28/2015 3:01pm Height 66 inches 5'6" Weight 176.00 lb with shoes Heart Rate 94 /min BP Systolic 108 mmHg LA reg cuff BP Diastolic 60 mmHg LA reg cuff BMI (Body Mass Index) 28.4 kg/m2 Ejection Fraction 55% - 60% echo 09/02/15 08/10/2015 9:18am Height 66 inches 5'6" Weight 181.25 lb with shoes Heart Rate 76 /min BP Systolic Sitting 122 mmHg LA, regular BP Diastolic Sitting 82 mmHg LA, regular BMI (Body Mass Index) 29.3 kg/m2 Ejection Fraction 55-60% echo 08/03/14 05/28/2014 2:58pm Height 66 inches 5'6" Weight 176.25 lb with boots (160 lbs at home Heart Rate 76 /min BP Systolic Sitting 138 mmHg LA reg cuff BP Diastolic Sitting 90 mmHg LA reg cuff Respiratory Rate 17 /min BMI (Body Mass Index) 28.4 kg/m2 05/29/2013 10:50am Height 66 inches 5'6" Weight 173.00 lb Heart Rate 88 /min BP Systolic Sitting 118 mmHg BP Diastolic Sitting 80 mmHg Respiratory Rate 16 /min BMI (Body Mass Index) 27.9 kg/m2 Results Description No Information Available Procedures Date Code Description Status 01/10/2017 58089 Treadmill Interp/Report Only Completed 01/10/2017 95244 Stress Test Supervsn W/Out I/R Completed 01/04/2017 04270 ECHO Transthoracic, Real-Time 2D With Doppler And Color Completed Flow 12/08/2016 05585 EKG Tracing & Interpretation Completed 09/02/2015 16328 ECHO Transthoracic, Real-Time 2D With Doppler And Color Completed Flow 08/10/2015 75732 EKG Tracing & Interpretation Completed 08/03/2014 06611 ECHO Transthoracic, Real-Time 2D With Doppler And Color Completed Flow 05/28/2014 22688 EKG Tracing & Interpretation Completed 05/21/2013 60585 Treadmill Interp/Report Only Completed 05/21/2013 03431 Stress Test Supervsn W/Out I/R Completed 03/31/2013 43827 ECHO Transthoracic, Real-Time 2D With Doppler And Color Completed Flow 03/24/2013 11224 EKG Tracing & Interpretation Completed 04/20/2012 93198 EKG, Interpretation Only Completed Encounters Type Date Location Provider Dx Diagnosis Office Visit 01/18/2017 [facility] PENELOPE Pemberton I10 Essential ( primary) 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 I10 Vibha Day M.D. (primary) hypertension E11.9 Type 2 diabetes mellitus without complications E78.2 Mixed hyperlipidemia J44.9 Chronic obstructive pulmonary disease, unspecified R07.9 Chest pain, unspecified Office Visit 09/28/2015 4:00p [facility] Qutaybeh S. I10 Essential Yani Day (primary) hypertension R94.31 Abnormal electrocardiogram [ECG] [EKG] R06.02 Shortness of breath E11.9 Type 2 diabetes mellitus without complications E78.2 Mixed hyperlipidemia J44.9 Chronic obstructive pulmonary disease, unspecified Office Visit 08/10/2015 9:40a [facility] Qutaybeh S. I10 Essential Yani Day (primary) hypertension R94.31 Abnormal electrocardiogram [ECG] [EKG] E11.9 Type 2 diabetes mellitus without complications E78.2 Mixed hyperlipidemia R06.02 Shortness of breath Office Visit 05/28/2014 3:40p [facility] Qutaybeh S. 786.50 Pain Laura Day M.D. Unspec 786.05 Shortness Of Breath 401.9 Hypertension Unspec 794.31 Electrocardiogram (ECG) (EKG) Abnormal 250.00 Diabetes Mellitus W/O Compl Type II Or Unspec Controlled Office Visit 05/29/2013 11:00a [facility] Qutaybeh S. 786.50 Pain Laura Day M.D. Unspec 786.05 Shortness Of Breath 401.9 Hypertension Unspec 794.31 Electrocardiogram (ECG) (EKG) Abnormal Office Visit 05/21/2013 9:30a [facility] Qutaybeh S. 786.50 Pain Laura Day M.D. Unspec 786.05 Shortness Of Breath 401.9 Hypertension Unspec 250.00 Diabetes Mellitus W/O Compl Type II Or Unspec Controlled Office Visit 03/24/2013 3:30p [facility] Qutaybeh S. 786.50 Pain Chest Yani Day Unspec 786.50 Pain Chest Unspec 401.0 Hypertension Malignant 401.0 Hypertension Malignant 272.2 Hyperlipidemia Mixed 786.05 Shortness Of Breath 786.05 Shortness Of Breath 794.31 Electrocardiogram (ECG) (EKG) Abnormal Office Visit 04/20/2012 1:38p [facility] Karlos Gardiner 786.50 Pain Chest Assoc,noemi JAIMES M.D. Unspec Hospitalists 250.00 Diabetes Mellitus W/O Compl Type II Or Unspec Controlled 401.9 Hypertension Unspec 272.2 Hyperlipidemia Mixed Office Visit 04/19/2012 [facility] Sanket 250.00 Diabetes 1:38p Assoc,pc [facility] N.P. Mellitus W/O Hospitalists Compl Type II Or Unspec Controlled 401.9 Hypertension Unspec 414.00 Coronary Atherosclerosis Unspec Type Vessel [place] 786.50 Pain Chest Unspec Office Visit 01/14/2009 2:15p Neurosurgery Giorgio Momin4.5 Backache Unspec Services Of Niraj Weber M.D. Office Visit 12/11/2008 9:00a Neurosurgery Giorgio Momin4.2 Lumbago Services Of Niraj Weber M.D. 729.5 Pain In Limb Plan of Treatment 08/09/2018 - Miguel Duran MDE11.9 Type 2 diabetes mellitus without complicationsNew Orders:Colonoscopy, Ordered: 08/09/18Comments:Risk and benefits of the procedure were discussed with patient.Follow up:With COPD [place] [facility] [place] AMZ80.0 Family history of malignant neoplasm of digestive organsComments:Risk and benefits of the procedure were discussed with patient.Follow up:With COPD [place] [facility] [place] 10[place] AMR07.89 Other chest painComments:Risk and benefits of the procedure were discussed with patient.Follow up:With COPD to [place] [facility] [place] 10:30 AMJ44.9 Chronic obstructive pulmonary disease, unspecifiedComments:Risk and benefits of the procedure were discussed with patient.Follow up:With COPD [place] [facility] [place] 10: 30 AMI10 Essential (primary) hypertensionComments:Risk and benefits of the procedure were discussed with patient.Follow up:With COPD to [place] [facility] [place] 10: 30 AM
--- OUTSIDE RECORDS SUMMARY | 2018-08-27 07:36 | XMS REPORT ---
:1960 Author Organization [facility] Care Team Providers Name Role Phone Lorenzo Doty Unavailable Unavailable PROBLEMS Unknown Problems ALLERGIES No Information ENCOUNTERS Encounter Location Date Diagnosis [address] [address] Nov, [address] [address] Nov, [address] [address] Aug, [address] [address] Aug, [address] [address] Jul, [address] [address] Jun, [address] [address] Jun, [address] [address] Jun, IMMUNIZATIONS No Known Immunizations SOCIAL HISTORY Never Assessed REASON FOR REFERRAL FUNCTIONAL STATUS PLAN OF CARE VITAL SIGNS MEDICATIONS Unknown Medications PROCEDURES Procedure Date Ordered Result Body Site No Billable Treatment Provided August 08, 2018 RESULTS No Results REASON FOR VISIT Insurance Providers [facility] Member Patient Patient Patient Patient Patient Subscriber Subscriber Subscriber Group Insurance Plan Plan Plan Plan ID Relationship Address Phone Name Date of ID Name Date of No Type Insurance Insurance Insurance Coverage to Subscriber Address Phone Name Dates Aetna [phone] Aetna self [place] [id number] Medicare [id number] Medicare [place] Adv P[place] [address] Medicaid [address] [phone] Medicaid self [place] [id number] [facility] [address] [id number] Medicare [place] [phone] Medicare self [place] [id number] PPS Government 41 PPS [place] [employer] [address] [facility] [phone]
--- OUTSIDE RECORDS SUMMARY | 2018-08-27 07:36 | XMS REPORT ---
:1960 Author Organization [facility] Care Team Providers Name Role Phone Lorenzo Doty Unavailable Unavailable PROBLEMS Unknown Problems ALLERGIES No Information ENCOUNTERS Encounter Location Date Diagnosis [address] [address] Nov, [address] [address] Nov, [address] [address] Aug, [address] [address] Aug, [address] [address] Jul, [address] [address] Jun, [address] [address] Jun, [address] [address] Jun, IMMUNIZATIONS No Known Immunizations SOCIAL HISTORY Never Assessed REASON FOR REFERRAL FUNCTIONAL STATUS PLAN OF CARE VITAL SIGNS Blood pressure systolic 143 mm Hg 2018-08-22 Blood pressure diastolic 88 mm Hg 2018-08-22 MEDICATIONS Unknown Medications PROCEDURES Procedure Date Ordered Result Body Site BLOOD PRESSURE, MEASURED August 22, 2018 EXTRAC ERUPTED TOOTH/EXPOSED ROOT August 22, 2018 RESULTS No Results REASON FOR VISIT #21 Insurance Providers [facility] Member Patient Patient Patient Patient Patient Subscriber Subscriber Subscriber Group Insurance Plan Plan Plan Plan ID Relationship Address Phone Name Date of ID Name Date of No Type Insurance Insurance Insurance Coverage to Subscriber Address Phone Name Dates Aetna [phone] Aetna self [place] [id number] Medicare [id number] Medicare [place] Adv [place] [address] Medicaid [phone] Medicaid self [place] [id number] [facility] [address] [id number] Medicare [place] [phone] Medicare self [place] [id number] PPS Government 41 PPS [place] [employer] [address] [facility] [phone]
[2018-08-27 07:44] VITALS: BP 106/74
== END 2018-08-27 07:43 | disposition home or self-care (01) ==
LOC: ED 06:55
DX: S13.4XXA Sprain of ligaments of cervical spine, initial encounter (principal); E11.9 Type 2 diabetes mellitus without complications; I25.10 Atherosclerotic heart disease of native coronary artery without angina pectoris; E78.00 Pure hypercholesterolemia, unspecified; I10 Essential (primary) hypertension; J44.9 Chronic obstructive pulmonary disease, unspecified; Z87.891 Personal history of nicotine dependence; V49.9XXD Car occupant (driver) (passenger) injured in unspecified traffic accident, subsequent encounter; Y92.9 Unspecified place or not applicable
CPT/HCPCS: 99282; A9270-GY

== ENCOUNTER 2018-09-03 13:17 | Emergency (ER) | payer MEDICARE, OTHER ==
[2018-09-03] MEDS ORDERED: methylPREDNISolone 125 MG* 2 ML VIAL IV ONE (13:56)
[2018-09-03] MEDS ORDERED: EPINEPHRINE 1 MG/ML 1 ML VIAL IM ONE (13:56)
--- NOTE | 2018-09-03 14:02 | UC ---
General HPI - HPI Summary HPI Summary: Patient took Baclofen this morning around 8 am. Took first dose last evening. He was prescribed baclofen for his neckaches. At 11 he was at his brother's house, when he felt itching all over. NOticed his neck was swollen, red and itchy. Took 4 tabs of benadryl and drove here. Vomited in the bathroom here. Feels his throat is scratchy, left side of his tongue is number and his throat feels 'swollen'. He is also coughing nonstop. States he is having a hard time breathing. Also started a new BP medication but has been taking that for the past week. Meds: reviewed - History of Current Complaint Chief Complaint: UCAllergicReaction Stated Complaint: allerigic reaction Time Seen by Provider: 09/03/18 13:44 Pain Intensity: 0 - Allergy/Home Medications Allergies/Adverse Reactions: Allergies Allergy/AdvReac Type Severity Reaction Status Date / Time Adhesive Tape Allergy Mild Rash Verified 09/03/18 13:34 amoxicillin Allergy Hives/Diff. Verified 09/03/18 13:34 Breathing/I tching baclofen Allergy Anaphylatic Verified 09/03/18 14:08 Shock latex Allergy Rash Verified 09/03/18 13:34 PMH/Surg Hx/FS Hx/Imm Hx Previously Healthy: No Endocrine History: Diabetes, Dyslipidemia Cardiovascular History: Hypertension Respiratory History: COPD Other History Of: Negative For: Anticoagulant Therapy - Surgical History Surgical History: Yes Surgery Procedure, Year, and Place: C/3-C/4 FUSION 04/16/12, ANKLE TENDON, CATARACTS - Family History Known Family History: Positive: Cardiac Disease, Hypertension Family History: no fhx of malignant hyperthermia or anesthesia reaction - Social History Alcohol Use: None Alcohol Amount: 2-3 drinks per night Substance Use Type: Marijuana Substance Use Comment - Amount & Last Used: pt has been going AA meeting,not using presently Smoking Status (MU): Former Smoker Amount Used/How Often: 1/2PPD STARTED AGE 19, KEPT QUITTING Have You Smoked in the Last Year: No When Did the Patient Quit Smoking/Using Tobacco: stopped 10 or more years ago Review of Systems All Other Systems Reviewed And Are Negative: Yes ENT: Positive: Sore Throat Respiratory: Positive: Shortness Of Breath Physical Exam Triage Information Reviewed: Yes Appearance: Ill-Appearing Vital Signs: Initial Vital Signs Temp 98.4 F 04/30/19 13:30 Pulse 113 09/03/18 13:30 Resp 18 09/03/18 13:30 BP 174/103 09/03/18 13:30 Pulse Ox 100 09/03/18 13:30 Vital Signs Reviewed: Yes ENT: Positive: Pharynx normal, TMs normal Neck: Positive: Supple Respiratory: Positive: Other: - NO wheezing or stridor, No airway edema on visual inspection. Diminished breath sounds. Prolonged expiratory phase Cardiovascular: Positive: Tachycardia Abdomen Description: Positive: Nontender Skin: Positive: Other - mild edema and urticaria over anterior neck and torso Course/Dx - Course Course Of Treatment: This is a 58 yr old with neck rash, itching, N/V and throat numbness Concern for anaphylaxis - with urticaria, tongue numbness, scratchy throat and vomiting Epi 0.3 mg IM given and SOlumedrol 125 mg IV given (Took benadryl 100 mg PO at home around noon) Throat symptoms resolved Still feels like he can't take a deep breath in. REcommend patient be transferred to [facility] For further monitoring and evaluation for airway safety via EMS. Patient agreeable. Having his family member fiber picker his car. Sign out given to Dr. Kumar - Diagnoses Provider Diagnosis: Anaphylaxis Discharge - Sign-Out/Discharge Documenting (check all that apply): Patient Departure All imaging exams completed and their final reports reviewed: No Studies - Discharge Plan Condition: Fair Disposition: TRANS HIGHER LVL OF CARE FAC Referrals: Maty Omer NP [Primary Care Provider] - Additional Instructions: BACLOFEN now listed as an allergy Patient being transferred to [facility] ED Via EMS Recommend epi pen at discharge. - Billing Disposition and Condition Condition: FAIR Disposition: Trans Higher Lvl of Care Fac
[2018-09-03 14:12] VITALS: BP 121/76
== END 2018-09-03 14:20 | disposition short-term general hospital (02) ==
LOC: UCEAST 13:17
DX: T88.6XXA Anaphylactic reaction due to adverse effect of correct drug or medicament properly administered, initial encounter (principal); T42.8X5A Adverse effect of antiparkinsonism drugs and other central muscle-tone depressants, initial encounter; R06.02 Shortness of breath; J02.9 Acute pharyngitis, unspecified; R00.0 Tachycardia, unspecified; L50.9 Urticaria, unspecified; R11.10 Vomiting, unspecified; Y92.9 Unspecified place or not applicable; E11.9 Type 2 diabetes mellitus without complications; E78.5 Hyperlipidemia, unspecified; I10 Essential (primary) hypertension; J44.9 Chronic obstructive pulmonary disease, unspecified; Z91.040 Latex allergy status; Z88.0 Allergy status to penicillin; Z88.8 Allergy status to other drugs, medicaments and biological substances; Z91.048 Other nonmedicinal substance allergy status; Z87.891 Personal history of nicotine dependence
CPT/HCPCS: 96372; 96374; 99213; G0463; J2930

== ENCOUNTER 2018-09-03 14:47 | Emergency (ER) | payer MEDICARE ==
[2018-09-03] MEDS ORDERED: Famotidine TAB* 20 MG PO ONE (14:56)
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
[2018-09-03 15:38] VITALS: BP 134/83
== END 2018-09-03 15:38 | disposition home or self-care (01) ==
LOC: ED 14:47
DX: T88.6XXA Anaphylactic reaction due to adverse effect of correct drug or medicament properly administered, initial encounter (principal); T50.905A Adverse effect of unspecified drugs, medicaments and biological substances, initial encounter; Y92.9 Unspecified place or not applicable; Z87.891 Personal history of nicotine dependence; Z88.0 Allergy status to penicillin; R06.02 Shortness of breath; J02.9 Acute pharyngitis, unspecified; R00.0 Tachycardia, unspecified; L50.9 Urticaria, unspecified; R11.10 Vomiting, unspecified; E11.9 Type 2 diabetes mellitus without complications; E78.5 Hyperlipidemia, unspecified; I10 Essential (primary) hypertension; J44.9 Chronic obstructive pulmonary disease, unspecified; Z91.040 Latex allergy status; Z88.8 Allergy status to other drugs, medicaments and biological substances; Z91.048 Other nonmedicinal substance allergy status
CPT/HCPCS: 99282; A9270-GY

== ENCOUNTER 2018-10-01 10:13 | Emergency (ER) | payer MEDICARE, OTHER ==
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
[2018-10-01] MEDS ORDERED: NS 0.9% 1000 ML** 1,000 ML IV SCH (10:45)
[2018-10-01 11:04] LABS: Urine Appearance Clear; Urine Bilirubin Negative (Negative); Urine Blood Negative (Negative); Urine Color Yellow; Urine Glucose 3+(>=500 mg/dL) (Negative); Urine Ketones Negative (Negative); Urine Nitrite Negative (Negative); Urine Protein Negative (Negative); Urine Specific Gravity 1.024 (1.010-1.030); Urine Urobilinogen Negative (Negative)
[2018-10-01 11:33] LABS: ABS Basophils 0.1 10^3/ul (0-0.2); ABS Eosinophils 0.5 10^3/ul (0-0.6); ABS Lymphocytes 2.9 10^3/ul (1.0-4.8); ABS Monocytes 0.6 10^3/ul (0-0.8); ABS Neutrophils 4.3 10^3/ul (1.5-7.7); Eosinophil % 5.8 %; Hematocrit 42 % (42-52); Hemoglobin 13.9 g/dL (14.0-18.0); Mean Corpuscular HGB Conc 33 g/dL (31-36); Mean Corpuscular Hemoglobin 27 pg (27-31); Mean Corpuscular Volume 81 fL (80-94); Mean Platelet Volume 9.3 fL (7.4-10.4); Nucleated Red Blood Cells % 0.1; Platelet Count 166 10^3/uL (150-450); Red Cell Distribution Width 13 % (10.5-15); White Blood Count 8.4 10^3/uL (3.5-10.8)
[2018-10-01 11:41] LABS: Activated Partial Thrombo Time 29.9 seconds (26.0-36.3); INR 0.9 (0.82-1.09)
[2018-10-01] MEDS ORDERED: Morphine 4 MG/ML VIAL (1 ml) 4 MG/ML VIAL IV ONE (11:51)
[2018-10-01 11:52] LABS: Albumin 4.6 g/dL (3.2-5.2); Albumin/Globulin Ratio 1.8 (1-3); BUN/Creatinine Ratio 21.2 (8-20); Calcium 9.5 mg/dL (8.6-10.3); EGFR African American 111.6 (>60); EGFR Non-African American 92.3 (>60); Globulin 2.5 g/dL (2-4); Potassium 4.3 mmol/L (3.5-5.0); Total Bilirubin 0.3 mg/dL (0.2-1.0); Total Protein 7.1 g/dL (6.4-8.9)
[2018-10-01] MEDS ORDERED: Ondansetron INJ* 2 MG/ML VIAL IV ONE (11:52)
[2018-10-01] MEDS ORDERED: Iodixanol* (CONTRAST) 320 MG/ML 100 ML SDV IV ONE (11:58)
[2018-10-01 12:54] VITALS: BP 146/95
== END 2018-10-01 12:53 | disposition home or self-care (01) ==
LOC: ED 10:13
DX: S30.0XXA Contusion of lower back and pelvis, initial encounter (principal); Z87.891 Personal history of nicotine dependence; I25.10 Atherosclerotic heart disease of native coronary artery without angina pectoris; E78.00 Pure hypercholesterolemia, unspecified; I10 Essential (primary) hypertension; E11.9 Type 2 diabetes mellitus without complications; J44.9 Chronic obstructive pulmonary disease, unspecified; J45.909 Unspecified asthma, uncomplicated; Z88.0 Allergy status to penicillin; V03.90XA Pedestrian on foot injured in collision with car, pick-up truck or van, unspecified whether traffic or nontraffic accident, initial encounter; Y92.481 Parking lot as the place of occurrence of the external cause; N40.0 Benign prostatic hyperplasia without lower urinary tract symptoms; I70.90 Unspecified atherosclerosis
CPT/HCPCS: 36415; 74177; 80053; 81003; 83605; 83690; 85025; 85610; 85730; 96361; 96374; 96375; 99282; J2270; J2405; Q9967

== ENCOUNTER 2019-02-07 08:11 | Emergency (ER) | payer MEDICARE, OTHER ==
[2019-02-07] MEDS ORDERED: Nitroglycerin TAB 0.4 MG* 0.4 MG TAB SL ONE ×2 (08:26→09:22)
[2019-02-07] MEDS ORDERED: Aspirin 81 mg CHEW TAB* 81 MG TAB.CHEW PO ONE (08:26)
[2019-02-07] MEDS ORDERED: Metoprolol Tartrate TAB* 25 MG PO ONE (08:26)
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
[2019-02-07 08:44] LABS: ABS Eosinophils 0.3 10^3/ul (0-0.6); ABS Lymphocytes 2.2 10^3/ul (1.0-4.8); ABS Monocytes 0.5 10^3/ul (0-0.8); ABS Neutrophils 4.6 10^3/ul (1.5-7.7); Eosinophil % 4.4 %; Hematocrit 41 % (42-52); Hemoglobin 13.4 g/dL (14.0-18.0); Lymphocyte % 28.9 %; Mean Corpuscular HGB Conc 33 g/dL (31-36); Mean Corpuscular Hemoglobin 27 pg (27-31); Mean Corpuscular Volume 82 fL (80-94); Nucleated Red Blood Cells % 0.1; Platelet Count 170 10^3/uL (150-450); Red Cell Distribution Width 13 % (10-15); White Blood Count 7.7 10^3/uL (3.5-10.8)
[2019-02-07 08:54] LABS: Activated Partial Thrombo Time 33.7 seconds (26.0-38.0); INR 0.97 (0.82-1.09)
[2019-02-07 09:05] LABS: Albumin 4.5 g/dL (3.2-5.2); BUN/Creatinine Ratio 17.9 (8-20); Calcium 9.7 mg/dL (8.6-10.3); EGFR African American 123.3 (>60); EGFR Non-African American 101.9 (>60); Globulin 2.2 g/dL (2-4); Magnesium 1.6 mg/dL (1.9-2.7); Potassium 4.3 mmol/L (3.5-5.0); Total Bilirubin 0.4 mg/dL (0.2-1.0); Total Protein 6.7 g/dL (6.4-8.9)
[2019-02-07] MEDS ORDERED: NS 0.9% 1000 ML** 1,000 ML IV ONE (09:19)
[2019-02-07] MEDS ORDERED: Ondansetron INJ* 2 MG/ML VIAL IV ONE (09:21)
[2019-02-07 09:38] LABS: TSH (Thyroid Stimulating Horm) 1.52 mcIU/mL (0.34-5.60)
[2019-02-07 11:53] LABS: Urine Appearance Clear; Urine Bilirubin Negative (Negative); Urine Blood Negative (Negative); Urine Color Yellow; Urine Glucose 1+(50 mg/dL) (Negative); Urine Ketones Negative (Negative); Urine Nitrite Negative (Negative); Urine Protein Negative (Negative); Urine Specific Gravity 1.012 (1.010-1.030); Urine Urobilinogen Negative (Negative)
[2019-02-07] MEDS ORDERED: Acetaminophen TAB* 325 MG PO PRN (12:12)
[2019-02-07] MEDS ORDERED: Magnesium Hydroxide LIQ* 30 ML UDC PO PRN (12:12)
[2019-02-07] MEDS ORDERED: LORazepam TAB(*) 1 MG PO PRN (12:18)
[2019-02-07] MEDS ORDERED: Albuterol 2.5 MG/3 ML NEB.SOL* (0.083%) INH PRN (12:18)
[2019-02-07] MEDS ORDERED: Temazepam CAP* 15 MG PO PRN (12:18)
[2019-02-07] MEDS ORDERED: Albuterol HFA INHALER* 8 gm MDI INH PRN (12:18)
[2019-02-07] MEDS ORDERED: traMADol TAB* 50 MG PO PRN (12:18)
[2019-02-07] MEDS ORDERED: Albuterol/Ipratropium NEB.SOL* Albuterol 2.5 MG/Ipratropium 0.5 MG 3 ML INH PRN (12:18)
[2019-02-07] MEDS ORDERED: Ibuprofen TAB* 600 MG PO PRN (12:18)
[2019-02-07] MEDS: Magnesium Sulfate 2 GM IV* 2 GM/50 ML BAG IVPB ONE ×2 (12:38→14:03)
[2019-02-07] MEDS ORDERED: Aminophylline IV* 25 MG/ML 10 ML VIAL ONE (13:02)
[2019-02-07] MEDS ORDERED: Regadenoson* 0.4 MG/5 ML SYRINGE ONE (13:02)
[2019-02-07] MEDS ORDERED: Gabapentin CAP(*) 300 MG PO SCH (14:00)
--- NOTE | 2019-02-07 15:06 | PN ---
Hospitalist Progress Note Date of Service: 02/07/19 Requested to consult on patient for potential admission. Patient does have SANDRA score of 4, some relief with NTG, also some diaphoresis; but also has reproducible chest pain that radiates to back and left shoulder. Pain also noted with palpation and movement of head and neck and left arm. Patient is having neurosurgery consult with Dr. Jack on 02/17/19 for potential cervical surgery. At this time I feel it's warranted to stress the patient ( troponin negative 0.00x2) today and discharge if negative. [facility] is able to stress today. 14:16: Per Dr. Burch, ECG is negative, per [facility], images are low risk. Patient to be discharged and has appointment scheduled for Sunday at 11:30 am for resting portion of stress. Discussed plan of care with patient's PCP, Maty Omer, MARINE that will include these in patient's cardiac clearance for potential surgery. Patient should also follow up with Dr. Michel, his mailroom assistant before surgery is scheduled. Discussed plan with Dr. Linn, ED provider and primary RN Kaye. Findings communicated to patient and he is in agreement with plan as well.
[2019-02-07 15:19] VITALS: BP 137/90
--- NOTE | 2019-02-07 16:26 | ECHO ---
*[facility]* [place] [address] Fax #: [phone] Transthoracic Echocardiogram Patient: Wesley Madrigal : 1960 Study Date: 02/07/2019 Age: 58 Gender: M HR: 78 bpm Height: 66 in /167.6 cm BSA: 1.77 m^2 Weight: 149.7 lb /68 kg BMI: 24.2 kg/m^2 *Database Design Analyst: * Vane Vallejo RDCS RN *Referring Physician: * Genna Powell *Reading Physician: * Raghav Choudhary MD Indications: Chest Pain, unspecified. Palpitations. History: Coronary artery disease with stent. Chronic obstructive pulmonary disease. Asthma. Risk factors: Hypertension. Diabetes mellitus. Dyslipidemia. Conclusions Summary: - Left ventricle: The cavity size is normal. Wall thickness is mildly increased. Systolic function is normal. The estimated ejection fraction is 60-65%. Wall motion is normal; there are no regional wall motion abnormalities. - Normal cardiac chamber sizes. - Functionally benign heart valves. - There is no prior echocardiogram available to compare with at this time. Study data: Transthoracic echocardiogram. Procedure: Transthoracic echocardiography was performed. Image quality was fair. The study was technically limited due to COPD. Complete 2D, spectral Doppler, and color flow Doppler. Location: Bedside. Patient status: Outpatient. Patient room number: ED-14. Rhythm: Normal sinus rhythm. Findings Left ventricle: The cavity size is normal. Wall thickness is mildly increased. Systolic function is normal. The estimated ejection fraction is 60-65%. Wall motion is normal; there are no regional wall motion abnormalities. Left ventricular diastolic function parameters are indeterminate. Right ventricle: The cavity size is normal. Systolic function is normal. Left atrium: The atrium is normal in size. Right atrium: The atrium is normal in size. Mitral valve: The leaflets are mildly thickened. There is no evidence of stenosis. There is trace regurgitation. Aortic valve: The valve is trileaflet. The leaflets are mildly thickened with focal moderate thickening on the non coronary cusp. There is no evidence of stenosis. There is no regurgitation. Tricuspid valve: The leaflets are normal thickness. There is trace regurgitation. Pulmonic valve: The leaflets are normal thickness. There is no evidence of stenosis. There is no significant regurgitation. Aorta: Aortic root: The aortic root is appears normal. Ascending aorta: The ascending aorta is not dilated. Aortic arch: The aortic arch is not dilated. Pericardium: There is no pericardial effusion. Pulmonary arteries: Not well visualized. Systolic pressure can not be accurately estimated. Systemic veins: Inferior vena cava: The vessel is normal in size. There is (>= 50%) respiratory change in the IVC dimension. Measurements Left ventricle Value Ref Aortic valve Value Ref MADISYN, LAX 4.7 cm 4.2 - 5.8 Cameron diam, ED 1.9 cm ---- ESD, LAX 2.6 cm 2.5 - 4.0 Peak v, S 1.32 m/sec ---- FS, LAX (H) 46 % 25 - 43 VTI, S 26.0 cm ---- PW, ED (H) 1.2 cm 0.6 - 1.0 Mean grad, S 4.0 mm Hg ---- IVS/PW, ED 0.93 Peak grad, S 7.0 mm Hg ---- E', lat cameron, TDI 10.0 cm/sec >=10.0 LVOT/AV, VTI ratio 0.84 -- -- E/e', lat cameron, 8 TDI Mitral valve Value Ref E', med cameron, TDI 7.8 cm/sec >=7.0 Peak E 0.77 m/sec -- -- E/e', med cameron, 10 Peak A 0.67 m/sec ---- TDI Decel time 208 ms ---- E', avg, TDI 8.9 cm/sec Peak grad, D 2.3 mm Hg ---- E/e', avg, TDI 9 <=14 Peak E/A ratio 1.1 -- -- LVOT Value Ref Pulmonic valve Value Ref Peak devante, S 1.18 m/sec Peak v, S 1.56 m/sec ---- VTI, S 21.8 cm Peak grad, S 10.0 mm Hg ---- Peak grad, S 6 mm Hg Mean grad, S 3 mm Hg Aortic root Value Ref Root diam 2.9 cm <4.0 Ventricular septum Value Ref Root max diam, ED 2.9 cm <4.0 IVS, ED (H) 1.1 cm 0.6 - 1.0 Ascending aorta Value Ref Right ventricle Value Ref AAo AP diam, S 2.9 cm ---- MADISYN minor ax, A4C 3.1 cm 1.9 - 3.5 mid Aortic arch Value Ref Arch diam 2.5 cm ---- Left atrium Value Ref AP dim, ES 3.40 cm 3.00 - Decending aorta Value Ref 4.00 Jed peak devante 0.62 m/sec ---- ML dim, A4C 3.5 cm SI dim, A4C 4.8 cm Inferior vena cava Value Ref Vol/bsa, ES, 1-p 25 ml/m^2 12 - 37 Diam 0.5 cm ---- A4C Vol/bsa, ES, A/L 28 ml/m^2 16 - 34 Right atrium Value Ref ML dim, ES, A4C 3.6 cm 2.6 - 4.4 SI dim, ES, A4C 4.6 cm 3.4 - 5.3 Estimated RAP 3 mm Hg Legend: (L) and (H) corky values outside specified reference range. Prepared and electronically signed by Raghav Choudhary MD 02/07/2019 16:25
[2019-02-07] MEDS ORDERED: metFORMIN* 1,000 MG TAB PO SCH (21:00)
[2019-02-07] MEDS ORDERED: traZODone TAB* 100 MG PO SCH (21:00)
[2019-02-08] MEDS ORDERED: Lisinopril TAB* 10 MG PO SCH (09:00)
[2019-02-08] MEDS ORDERED: NIFEdipine ER TAB* 30 MG PO SCH (09:00)
[2019-02-08] MEDS ORDERED: Losartan TAB* 25 MG PO SCH (09:00)
[2019-02-08] MEDS ORDERED: Tamsulosin CAP* 0.4 MG PO SCH (09:00)
[2019-02-08] MEDS ORDERED: Aspirin EC TAB* 81 MG TAB.EC PO SCH (09:00)
[2019-02-08] MEDS ORDERED: Atorvastatin* 20 MG TAB PO SCH (09:00)
== END 2019-02-07 15:18 | disposition home or self-care (01) ==
LOC: ED 08:11
DX: R07.9 Chest pain, unspecified (principal); Z79.899 Other long term (current) drug therapy; E11.9 Type 2 diabetes mellitus without complications; I25.10 Atherosclerotic heart disease of native coronary artery without angina pectoris; E78.00 Pure hypercholesterolemia, unspecified; I10 Essential (primary) hypertension; J44.9 Chronic obstructive pulmonary disease, unspecified; Z87.891 Personal history of nicotine dependence
CPT/HCPCS: 36415; 71045; 78452; 80053; 81003; 82550; 82553; 83605; 83735; 83880; 84443; 84484; 85025; 85610; 85730; 93005; 93017; 93306; 96361; 96365; 96375; 99284; A9270-GY; A9502; J0280; J2405; J2785; J3475

== ENCOUNTER 2019-10-07 06:17 | Inpatient (IN) ==
[~2019-10-07 06:17] MED LIST changes: -Famotidine TAB* 20 MG PO ONE; +Lactated Ringers 1000 ml BAG 1,000 ML IV SCH; +Vancomycin(*) 1,000 MG in NS 0.9% 250 ml 250 ML IVPB SCH
[2019-10-07] MEDS ORDERED: Acetaminophen IV 1 GM/100ML 100 ML ONE (06:20)
[2019-10-07] MEDS ORDERED: Glycopyrrolate IV 0.2 MG/ML 1 ML VIAL ONE (06:20)
[2019-10-07] MEDS ORDERED: Ondansetron 4 mg VIAL 2 MG/ML 2 ml VIAL ONE (06:20)
[2019-10-07] MEDS ORDERED: Neostigmine Methylsulfate 1 MG/ML 10 ML VIAL (1 mg/ml) ONE (06:20)
[2019-10-07] MEDS ORDERED: fentaNYL 250 mcg/5 ml 50 MCG/ML 5 ml VIAL (250 MCG) ONE ×2 (06:20→09:21)
[2019-10-07] MEDS ORDERED: Dexamethasone IV 4 MG/ML VIAL 1 ml VIAL ONE (06:20)
[2019-10-07] MEDS ORDERED: Succinylcholine 200 mg VIAL 20 mg/ml 10 ml VIAL (200 mg) ONE (06:20)
[2019-10-07] MEDS ORDERED: Rocuronium 50 mg VIAL 10 mg/ml 5 ml VIAL (50 mg) ONE (06:20)
[2019-10-07] MEDS ORDERED: Propofol 10 MG/ML 20 ML BTL ONE ×7 (06:20→11:01)
[2019-10-07] MEDS ORDERED: Midazolam 2 mg/2 ml VIAL 1 mg/ml 2 ml VIAL (2 mg) ONE (06:20)
[2019-10-07] MEDS ORDERED: EPHEDrine (Pressors) 50 MG/ML VIAL ONE (06:20)
[2019-10-07] MEDS ORDERED: Ketamine HCL 50 mg/ml 10 ml VIAL (500 MG) ONE (06:25)
[2019-10-07] MEDS ORDERED: Bacitracin INJECTION 50,000 UNITS ONE (06:52)
[2019-10-07] MEDS ORDERED: Lidocaine 1% w EPI 1:200,000 SDV 30 ML VIAL ONE (06:52)
[2019-10-07] MEDS ORDERED: Sterile Water for Inj 20 ML ONE (10:14)
[2019-10-07] MEDS ORDERED: hydrALAZINE 20 mg/ml 1 ML Vial IV ONE (10:15)
[2019-10-07] MEDS ORDERED: Propofol 1,500 MG/150 ML BTL ONE (11:01)
[2019-10-07] MEDS ORDERED: Naloxone 0.4 mg VIAL 0.4 mg/ml 1 ml VIAL IV PRN (11:26)
[2019-10-07] MEDS ORDERED: fentaNYL 100 mcg/2 ml 50 MCG/ML VIAL ONE (13:02)
[2019-10-07] MEDS: fentaNYL 100 mcg/2 ml 50 MCG/ML VIAL IV PRN ×4 (13:04→13:44)
[2019-10-07] MEDS ORDERED: HYDROcodone/ACETAMIN 5/325 mg TAB ONE (13:24)
[2019-10-07] MEDS: HYDROcodone/ACETAMIN 5/325 mg TAB PO PRN ×3 (13:25→21:25)
[2019-10-07] MEDS ORDERED: Ondansetron 4 mg VIAL 2 MG/ML 2 ml VIAL IV PRN (13:27)
[2019-10-07] MEDS ORDERED: Magnesium Hydroxide LIQ 30 ML UDC PO PRN (13:27)
[2019-10-07] MEDS ORDERED: Lactated Ringers 1000 ml BAG 1,000 ML IV SCH (14:00)
[2019-10-07] MEDS ORDERED: Dextrose 50% Syringe 50 ml 25 GM/50 ML SYRINGE IV PUSH PRN (14:58)
[2019-10-07] MEDS ORDERED: Albuterol 2.5mg/3 ml (0.083%) NEB.SOLN INH PRN (15:00)
[2019-10-07] MEDS ORDERED: Albuterol/Ipratropium NEB.SOL (2.5/0.5 MG) 3 ML NEB.SOLN INH PRN (15:00)
[2019-10-07] MEDS: Insulin LISPRO 100 units/ml(*) SUBCUT SCH ×2 (17:14→21:25)
[2019-10-08] MEDS: HYDROcodone/ACETAMIN 5/325 mg TAB PO PRN ×5 (01:45→21:38)
[2019-10-08] MEDS: Insulin LISPRO 100 units/ml(*) SUBCUT SCH ×4 (08:27→21:34)
[2019-10-08] MEDS ORDERED: Fluticasone NASAL SPRAY 50MCG 16 gm SPRAY BTL BOTH NARES SCH (09:00)
[2019-10-08 21:42] VITALS: BP 139/93
== END 2019-10-08 23:15 | disposition home or self-care (01) | DRG 321 ==
LOC: AA 06:17 → SSU 14:09
PROVIDERS: ADMIT Neurological Surgery; ATTEND Internal Medicine